=== PATIENT | male | born 1985 | race Caucasian/White ===

== ENCOUNTER 2018-01-07 17:02 | Emergency (ER) | payer BC ==
--- NOTE | 2018-01-07 19:06 | EDM.PDOC ---
ED HPI GENERAL MEDICAL PROBLEM - General Chief Complaint: Upper Extremity Injury/Pain Stated Complaint: HAND PAIN [id number] Time Seen by Provider: 01/07/18 19:02 Source of Information: Reports: Patient History Limitations: Reports: No Limitations - History of Present Illness INITIAL COMMENTS - FREE TEXT/NARRATIVE: fell onto right hand while roller blading @ ~4pm Right Hand Pain Score (Numeric/FACES): 6 - Related Data Allergies Allergy/AdvReac Type Severity Reaction Status Date / Time No Known Allergies Allergy Verified 01/07/18 18:24 Home Meds: Home Meds . 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 ED EXAM, GENERAL - Physical Exam Exam: See Below Exam Limited By: No Limitations General Appearance: Alert, WD/WN, No Apparent Distress, Other (minor hand discomfort) Ears: Hearing Grossly Normal Throat/Mouth: Normal Voice, No Airway Compromise Head: Atraumatic Neck: Non-Tender, Full Range of Motion Respiratory/Chest: No Respiratory Distress Cardiovascular: Regular Rate, Rhythm GI/Abdominal: Soft, Non-Tender Extremities: Other (right hand swollne tender @ lateral 5th, no gross D/D, NV wnl) Neurological: Alert, Oriented, Normal Cognition, Normal Gait, No Motor/Sensory Deficits Psychiatric: Normal Affect, Normal Mood Skin Exam: Warm, Dry, Normal Color Lymphatic: No Adenopathy Course - Vital Signs Last Recorded V/S: Last Vital Signs Temp 37.1 C 01/07/18 18:20 Pulse 72 01/07/18 18:20 Resp 16 01/07/18 18:20 BP 143/83 H 01/07/18 18:20 Pulse Ox 100 01/07/18 18:20 - Orders/Labs/Meds Orders: Active Orders 24 hr Category Date Time Status Hand Comp Min 3V Rt [CR] Urgent Exams 01/07/18 18:17 Taken - Re-Assessments/Exams Free Text/Narrative Re-Assessment/Exam: 01/07/18 19:04 results discussed with pt Departure - Departure Time of Disposition: 19:04 Disposition: Home, Self-Care 01 Condition: Good Clinical Impression: Contusion of hand, not fingers Qualifiers: Encounter type: initial encounter Laterality: right Qualified Code(s): S60.221A - Contusion of right hand, initial encounter - Discharge Information Instructions: Contusion, [id number] Additional Instructions: 1) wear brace for comfort 2) ice intermittently for swelling 3) take tylenol or motrin as needed for pain 4) see clinic for possible MRI SCAN if not totally better by
== END 2018-01-07 19:10 | disposition home or self-care (01) ==
LOC: DL.ED 17:02
DX: S60.221A Contusion of right hand, initial encounter (principal); V00.121A Fall from non-in-line roller-skates, initial encounter
CPT/HCPCS: 73130-RT; 99283

== ENCOUNTER 2019-06-09 12:11 | Emergency (ER) | payer BC ==
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
[~2019-06-09 12:11] MED LIST: Lactated Ringers 1,000 ML IV ONE; Sodium Chloride 0.9% 10 ML Syringe FLUSH PRN
[2019-06-09] MEDS ORDERED: Ondansetron 4 MG/2 ML SDV IV ONE (12:19)
[2019-06-09] MEDS ORDERED: fentaNYL 100 MCG/2 ML SDV IVPUSH ONE (12:19)
[2019-06-09] MEDS ORDERED: Iopamidol 612 MG/ML 100 ML Bottle IVPUSH ONE (12:19)
[2019-06-09 13:14] LABS: ANION GAP 11.7; CHLORIDE,CL 103 mmol/L (101-111); SODIUM,NA 134 mmol/L (135-145)
== END 2019-06-09 14:36 ==
LOC: DL.ED 12:11
DX: S22.42XA Multiple fractures of ribs, left side, initial encounter for closed fracture (principal); S22.20XA Unspecified fracture of sternum, initial encounter for closed fracture; S13.4XXA Sprain of ligaments of cervical spine, initial encounter; S80.212A Abrasion, left knee, initial encounter; S80.211A Abrasion, right knee, initial encounter; S30.1XXA Contusion of abdominal wall, initial encounter; S60.511A Abrasion of right hand, initial encounter; E66.9 Obesity, unspecified; V89.2XXA Person injured in unspecified motor-vehicle accident, traffic, initial encounter; Y92.410 Unspecified street and highway as the place of occurrence of the external cause
CPT/HCPCS: 36415; 51702; 70450; 71260; 72125; 74177; 80053; 80305; 80320; 81001; 82150; 82962; 83690; 85025; 85610; 85730; 93005; 96361; 96374; 96375; 99285; G0390; J2405; J3010; J7120; Q9967; G0480